=== PATIENT | male | born 1945 ===

== ENCOUNTER 2018-12-24 09:38 | Day surgery (SDC) | payer OTHER ==
[~2018-12-24] VITALS: Ht 177.8 cm; Wt 83.0 kg
[~2018-12-24 09:38] MED LIST: FLUT1DIS5; Flunisolide25 ML INH; OMEPRAZOLE20 MG; SILDENAFIL CIT100 MG PO; SIMV40 PO; TAMS.4ER PO
[2018-12-24] MEDS ORDERED: Viagra100 MG PO (10:35)
[2018-12-24] MEDS ORDERED: PRED20 PO (10:37)
[2018-12-24] MEDS ORDERED: ALBU90OI INH (10:38)
--- NOTE | 2018-12-24 11:43 | NUR ---
12/24/18 1143 Shayla Huffman USED FOR NASAL PACKING
== END 2018-12-24 15:25 | disposition home or self-care (01) ==
LOC: ORSCSDS 09:38
PROVIDERS: Otolaryngology
PROC: 099Q8ZZ Drainage of Right Maxillary Sinus, Via Natural or Artificial Opening Endoscopic (ICD-10-PCS; principal; 2018-12-24 11:00)
PROC: 09DV4ZZ Extraction of Left Ethmoid Sinus, Percutaneous Endoscopic Approach (ICD-10-PCS; principal; 2018-12-24 11:00)
PROC: 09BM0ZZ Excision of Nasal Septum, Open Approach (ICD-10-PCS; principal; 2018-12-24 11:00)
PROC: 099W8ZZ Drainage of Right Sphenoid Sinus, Via Natural or Artificial Opening Endoscopic (ICD-10-PCS; principal; 2018-12-24 11:00)
PROC: 09JY8ZZ Inspection of Sinus, Via Natural or Artificial Opening Endoscopic (ICD-10-PCS; principal; 2018-12-24 11:00)
PROC: 09DU4ZZ Extraction of Right Ethmoid Sinus, Percutaneous Endoscopic Approach (ICD-10-PCS; principal; 2018-12-24 11:00)
PROC: 099R8ZZ Drainage of Left Maxillary Sinus, Via Natural or Artificial Opening Endoscopic (ICD-10-PCS; principal; 2018-12-24 11:00)
PROC: 099X8ZZ Drainage of Left Sphenoid Sinus, Via Natural or Artificial Opening Endoscopic (ICD-10-PCS; principal; 2018-12-24 11:00)
DX: J32.4 Chronic pansinusitis (principal); H81.09 Meniere's disease, unspecified ear; Z79.899 Other long term (current) drug therapy
CPT/HCPCS: 88304; C2625; J1100; J2250; J2405; J2704; J2710; J3010; J7120